=== PATIENT | female | born 1950 | race Caucasian/White ===

== ENCOUNTER 2017-01-05 17:22 | Emergency (ER) | payer MEDICARE ==
[~2017-01-05] VITALS: Ht 160 cm; Wt 54.0 kg
[~2017-01-05 17:22] MED LIST: ADLT ASA LOW81 MG PO; ALDACTONE25 MG PO; CIPROFLOXACN500 MG PO; K-DUR/KLOR-CON20 MEQ PO; KLOR-CON 1010 ME1 PO; LASIX 20 MG20 MG/TAB PO; LASIX 40 MG40 MG/TAB PO; LASIX40 MG PO; LEVAQUIN750 MG PO; LIPITOR40 M1 PO; LISINOPRIL20 MG PO; LOPRESSOR 550 MG/TAB PO; LOPRESSOR25 MG PO; LORTAB 5/3255 MG PO; ZESTRIL/PRINIV2.5 MG PO
[2017-01-05 18:14] LABS: HEMATOCRIT 29.5 % (37.0-47.0); HEMOGLOBIN 9.4 g/dl (12.0-16.0); IMMATURE GRANULOCYTES 0.7 % (0.0-1.0); MEAN CELL VOLUME 74.7 fL CALC (80.0-100.0); MEAN CORPUSCULAR HGB 23.8 pG CALC (26.0-32.0); MEAN CORPUSCULAR HGB CONC 31.9 g/L CALC (32.0-36.0); NEUT# 10.1 thou/uL (2.00-7.15); RED BLOOD COUNT 3.95 mill/uL (4.20-5.60); RED CELL DISTRI WIDTH 21.1 % (11.5-15.5)
[2017-01-05 18:27] LABS: ALBUMIN 3.9 g/dL (3.2-5.0); ALKALINE PHOSPHATASE 62 u/l (38-126); AMYLASE 83 u/l (30-110); ANION GAP 21 (6-22 (CALC)); BILIRUBIN, TOTAL 1.2 mg/dL (0.0-1.4); BUN 24 mg/dL (8-23); BUN/CREATININE RATIO 27 (12-20 (CALC)); CALCIUM 9.5 mg/dL (8.4-10.2); CARBON DIOXIDE 20 mmol/l (22-30); CHLORIDE 104 mmol/l (95-108); CREATININE 0.9 mg/dL (0.5-1.0); GFR > 60 ML/MIN (>=60 (CALC)); GFR FOR AFR.AMER. > 60 ML/MIN (>=60 (CALC)); GLUCOSE 114 mg/dL (82-115); LIPASE 72 u/l (23-300); POTASSIUM 3.2 mmol/l (3.5-5.1); SGOT/AST 21 u/l (9-36); SGPT/ALT 26 u/l (11-66); SODIUM 142 mmol/l (137-146); TOTAL PROTEIN 7.1 g/dL (6.3-8.2)
[2017-01-05 18:31] LABS: URINE BLOOD DIPSTICK NEGATIVE (NEGATIVE); URINE COLOR YELLOW; URINE GLUCOSE - DIPSTICK NEGATIVE (NEGATIVE); URINE KETONE 40 mg/dL (NEGATIVE); URINE LEUK ESTERASE NEGATIVE (NEGATIVE); URINE PROTEIN - DIPSTICK 100 mg/dL (NEG-TRACE); URINE SPECIFIC GRAVITY >=1.030
[2017-01-05 18:39] LABS: MYOGLOBIN 51 ng/mL (0 - 62)
[2017-01-05 18:45] LABS: URINE BILIRUBIN - DIPSTICK NEGATIVE (NEGATIVE); URINE CLARITY SLIGHT CLOUDY; URINE NITRITE - DIPSTICK POSITIVE (Negative)
[2017-01-05 18:46] LABS: URINE BACTERIA MODERATE hpf; URINE CALCIUM OXALATE CRYSTALS MANY lpf; URINE SQUAMOUS EPITHELIAL CELL FEW EPI/hpf (0-FEW)
[2017-01-05] MEDS ORDERED: ULTRAM50 M1 PO (20:40)
[2017-01-05] MEDS ORDERED: CIPROFLOXACN500 MG PO (20:40)
[2017-01-05] MEDS ORDERED: METRONIDAZOL500 MG PO (20:40)
[2017-01-06 00:49] VITALS: BP 142/72
== END 2017-01-05 22:58 | disposition left against medical advice (07) ==
LOC: ED 17:22 → ED-I 22:20 → ED 22:58
PROVIDERS: Emergency Medicine
DX: K80.20 Calculus of gallbladder without cholecystitis without obstruction (principal); R10.11 Right upper quadrant pain; Z91.19 Patient's noncompliance with other medical treatment and regimen; R11.2 Nausea with vomiting, unspecified; R50.9 Fever, unspecified; R53.1 Weakness; I10 Essential (primary) hypertension; I50.9 Heart failure, unspecified